=== PATIENT | male | born 1980 | race Caucasian/White ===

== ENCOUNTER 2018-03-16 14:01 | Emergency (ER) | payer BC ==
[2018-03-16] MEDS ORDERED: ASPIRIN 81 MG TABLET, CHEWABLE PO ONE (14:40)
--- NOTE | 2018-03-16 14:41 | ER Document Report ---
ED Medical Screen (RME) - General Chief Complaint: Chest Pain Stated Complaint: CHEST PAIN Time Seen by Provider: 03/16/18 14:26 Notes: 37-year-old male complaining of chest pain for a week. Dyspnea on exertion. Pain in his right arm. Chest pain is worse with exertion. Went to the urgent care and they sent him here. I have greeted and performed a rapid initial assessment of this patient. A comprehensive ED assessment and evaluation of the patient, analysis of test results and completion of the medical decision making process will be conducted by additional ED providers. TRAVEL OUTSIDE OF THE [place] IN LAST 30 DAYS: No - HPI Onset: Last week - Related Data Allergies/Adverse Reactions: No Known Allergies Allergy (Verified 03/16/18 14:02) Past Medical History - Social History Cigarette use (# per day): Yes - Occasional use Chew tobacco use (# tins/day): Yes Frequency of alcohol use: "former drinker, last drink few days ago" Drug Abuse: None Lives with: Spouse/Significant other Renal/ Medical History: Denies: Hx Peritoneal Dialysis Review of Systems - Review of Systems Notes: Review of systems remarkable for the following: Chest pain, shortness of breath , dyspnea on exertion, exertional chest pain, right arm pain, confusion Physical Exam - Vital signs Vitals: Temp Pulse Resp BP Pulse Ox 99.0 F 74 18 161/98 H 100 03/16/18 14:10 03/16/18 14:10 03/16/18 14:10 03/16/18 14:10 03/16/18 14:10 Interpretation: Normal - Respiratory Respiratory status: No respiratory distress Chest status: Nontender Breath sounds: Normal Chest palpation: Normal - Cardiovascular Rhythm: Regular Heart sounds: Normal auscultation Murmur: No - Extremities General upper extremity: Normal inspection, Nontender, Normal color, Normal ROM , Normal temperature General lower extremity: Normal inspection, Nontender, Normal color, Normal ROM , Normal temperature, Normal weight bearing. No: Michelle's sign Course - Vital Signs Vital signs: Temp Pulse Resp BP Pulse Ox 99.0 F 74 18 161/98 H 100 03/16/18 14:10 03/16/18 14:10 03/16/18 14:10 03/16/18 14:10 03/16/18 14:10
[2018-03-16 15:12] LABS: ABSOLUTE BASOPHILS # (AUTO) 0.1 10^3/uL (0.0-0.2); ABSOLUTE EOSINOPHILS # (AUTO) 0.2 10^3/uL (0.0-0.6); ABSOLUTE LYMPHOCYTES (AUTO) 1.7 10^3/uL (0.5-4.7); ABSOLUTE MONOCYTES (AUTO) 0.5 10^3/uL (0.1-1.4); ABSOLUTE NEUT (AUTO) 2.8 10^3/uL (1.7-8.2); BASOPHILS % (AUTO) 1.3 % (0-2); EOSINOPHILS % (AUTO) 3.6 % (0-6); HEMATOCRIT 43.9 % (37.9-51.0); HEMOGLOBIN 15.1 g/dL (13.5-17.0); LYMPHOCYTES % (AUTO) 33.2 % (13-45); MEAN CORPUSCULAR HGB CONC 34.4 g/dL (32.0-36.0); MEAN CORPUSCULAR VOLUME 84 fl (80-97); MONOCYTES % (AUTO) 8.8 % (3-13); PLATELET COUNT 196 10^3/uL (150-450); RED CELL DISTRIBUTION WIDTH 13.3 % (11.5-14.0); SEGMENTED NEUTROPHILS % (AUTO) 53.1 % (42-78); TOTAL CELLS COUNTED % (AUTO) 100 %; WHITE BLOOD COUNT 5.2 10^3/uL (4.0-10.5)
--- NOTE | 2018-03-16 15:14 | RADIOLOGY REPORT (SQ) ---
EXAM DESCRIPTION: CHEST 2 VIEWS COMPLETED DATE/TIME: 03/16/2018 2:53 pm REASON FOR STUDY: sob COMPARISON: None. EXAM PARAMETERS: NUMBER OF VIEWS: two views TECHNIQUE: Digital Frontal and Lateral radiographic views of the chest acquired. RADIATION DOSE: NA LIMITATIONS: none FINDINGS: LUNGS AND PLEURA: No acute infiltrates or effusions. MEDIASTINUM AND HILAR STRUCTURES: No masses or contour abnormalities. HEART AND VASCULAR STRUCTURES: The heart is normal with normal pulmonary vasculature. BONES: No acute findings. HARDWARE: None in the chest. OTHER: No other significant finding. IMPRESSION: NO ACUTE DISEASE. TECHNICAL DOCUMENTATION: JOB ID: [id number] [id number] [email or web address]- All Rights Reserved Reading location - IP/workstation name: [email or web address]
[2018-03-16 15:45] LABS: ALANINE AMINOTRANSFERASE 19 U/L (21-72); ALBUMIN 4.6 g/dL (3.5-5.0); ALKALINE PHOSPHATASE 63 U/L (38-126); ANION GAP 15 (5-19); ASPARTATE AMINO TRANSFERASE 23 U/L (17-59); BILIRUBIN,DIRECT 0.3 mg/dL (0.0-0.4); BILIRUBIN,TOTAL 0.5 mg/dL (0.2-1.3); BLOOD UREA NITROGEN 12 mg/dL (7-20); CALCIUM 9.9 mg/dL (8.4-10.2); CARBON DIOXIDE 27 mmol/L (22-30); CHLORIDE 103 mmol/L (98-107); CREATINE KINASE 131 U/L (55-170); GLUCOSE 95 mg/dL (75-110); POTASSIUM 4.2 mmol/L (3.6-5.0); SODIUM 145.3 mmol/L (137-145); TOTAL PROTEIN 7.8 g/dL (6.3-8.2)
[2018-03-16 15:58] LABS: CREATINE KINASE MB 0.41 ng/mL (<4.55); NT PRO BNP 66 pg/mL (<125)
--- NOTE | 2018-03-16 16:03 | ER Document Report ---
ED Cardiac - General Chief Complaint: Chest Pain Stated Complaint: CHEST PAIN Time Seen by Provider: 03/16/18 14:26 Information source: Patient Notes: Patient is a 37-year-old male but states around 1 week of some chest pain and shortness of breath on exertion. He denies any increased pain during this week. He states it resolves with rest. He denies any calf pain, leg swelling, recent trips or travel. Patient states he has no documented medical history but believes he may have elevated blood pressure at baseline. Patient states his mom had 2 stents but he is unsure when the stents were placed. TRAVEL OUTSIDE OF THE [place] IN LAST 30 DAYS: No - HPI Patient complains to provider of: Chest pain, Shortness of breath Was the onset of pain: Gradual Is the pain a: New problem Chest pain location: Substernal, Other - See above Quality of pain: Other - See above Chest pain radiation location: Right arm Severity now: None Severity at worst: Moderate Pain level currently: Denies Associated symptoms: Other - See above Exacerbated by: Denies Relieved by: Nothing Similar symptoms previously: No Recently seen / treated by doctor: No - Related Data Allergies/Adverse Reactions: No Known Allergies Allergy (Verified 03/16/18 14:02) Past Medical History - General Information source: Patient - Social History Smoking Status: Current Some Day Smoker Cigarette use (# per day): Yes - Occasional use Chew tobacco use (# tins/day): Yes Smoking Education Provided: No Frequency of alcohol use: "former drinker, last drink few days ago" Drug Abuse: None Lives with: Spouse/Significant other Family History: Other - See above Patient has suicidal ideation: No Patient has homicidal ideation: No Renal/ Medical History: Denies: Hx Peritoneal Dialysis Review of Systems - Review of Systems Constitutional: denies: Fever EENT: denies: Eye discharge, Nose discharge Respiratory: Short of breath Gastrointestinal: denies: Vomiting Genitourinary: denies: Dysuria Musculoskeletal: denies: Leg swelling Skin: Other - no hives. denies: Rash Neurological/Psychological: Other - no slurred speech -: Yes All other systems reviewed and negative Physical Exam - Vital signs Vitals: Temp Pulse Resp BP Pulse Ox 99.0 F 74 18 161/98 H 100 03/16/18 14:10 03/16/18 14:10 03/16/18 14:10 03/16/18 14:10 03/16/18 14:10 Notes: Reviewed vital signs and nursing note as charted by RN. CONSTITUTIONAL: Alert and oriented and responds appropriately to questions. Well -appearing; well-nourished HEAD: Normocephalic; atraumatic CARD: Regular rate and rhythm; no murmurs; symmetric distal pulses RESP: Normal chest excursion without splinting or tachypnea; breath sounds clear and equal bilaterally; no wheezes, no rhonchi, no rales ABD/GI: Normal bowel sounds; non-distended; soft, non-tender BACK: The back appears normal and is non-tender to palpation, there is no CVA tenderness EXT: Normal ROM in all joints; no edema SKIN: Normal color for age and race; warm; dry; no acute lesions noted NEURO: Moves all extremities equally; Motor and sensory function intact PSYCH: The patient's mood and manner are appropriate. Grooming and personal hygiene are appropriate. Course - Re-evaluation Re-evalutation: Given the above history and physical examination, we will obtain an EKG, cardiac panel, BNP, x-ray of the chest, and reassess. Patient already took 162 mg of aspirin at home. We will provide another 162 mg at this time. Given the young age, low risk factors, I do believe ACS to be unlikely. However, we will order the full cardiac panel. Given that the patient's symptoms have been going on for greater than 1 week, I believe one troponin should be sufficient. I will also add on a BNP given the patient states some dyspnea with exertion as well as a d-dimer. I will also add on a urine drug screen given the patient's young age and atypical symptomatology. 03/16/18 16:04 EKG shows a heart rate of 64, normal sinus rhythm, normal axis, no obvious ST elevation or depression. PVC is present 03/16/18 16:38 Cardiac labs, troponin, BNP, and d-dimer as recorded. Chest x-ray shows normal heart, normal mediastinum, no fractures, normal lung hill, no pneumothorax. Given the above history and physical examination, young age, HEART score of 1, with symptoms only upon ambulating, with an unremarkable EKG, with a normal d- dimer with a BNP is recorded, I do not believe that the patient requires admission at this time. Patient will be discharged home with strict return precautions and outpatient cardiology follow-up. Patient understands my instructions as well as to continue to take a baby aspirin daily until reevaluation. - Vital Signs Vital signs: Temp Pulse Resp BP Pulse Ox 99.0 F 74 13 161/98 H 99 03/16/18 14:10 03/16/18 14:10 03/16/18 16:00 03/16/18 14:10 03/16/18 16:00 - Laboratory Result Diagrams: 03/16/18 14:50 03/16/18 14:50 Laboratory results interpreted by me: 03/16/18 14:50 Sodium 145.3 H ALT 19 L Discharge - Discharge Clinical Impression: Chest pain Qualifiers: Chest pain type: unspecified Qualified Code(s): R07.9 - Chest pain, unspecified Condition: Good Disposition: HOME, SELF-CARE Additional Instructions: Come back immediately for any worsening symptoms, leg swelling, fever, change in location or quality of discomfort, or any other acute problems. Please follow-up with the pocket secretary assembler we have referred you to. Referrals: VELMA,NO [Primary Care Provider] - Follow up as needed EDDIE RAMIREZ MD [ACTIVE STAFF] - Follow up as needed
[2018-03-16 16:04] LABS: TROPONIN I < 0.012 ng/mL
[2018-03-16 16:20] LABS: APPEARANCE,URINE CLEAR; BILIRUBIN,URINE NEGATIVE (NEGATIVE); COLOR,URINE STRAW; GLUCOSE, URINE NEGATIVE (NEGATIVE); KETONES,URINE NEGATIVE (NEGATIVE); LEUKOCYTE ESTERASE,URINE NEGATIVE (NEGATIVE); NITRITE,URINE NEGATIVE (NEGATIVE); PROTEIN,URINE NEGATIVE (NEGATIVE); URINE SPECIFIC GRAVITY 1.004; UROBILINOGEN,URINE NEGATIVE mg/dL (<2.0)
[2018-03-16 16:21] LABS: URINE AMPHETAMINES SCREEN NEGATIVE; URINE BARBITURATES SCREEN NEGATIVE; URINE BENZODIAZEPINES SCREEN NEGATIVE; URINE COCAINE SCREEN NEGATIVE; URINE MARIJUANA (THC) SCREEN NEGATIVE; URINE METHADONE SCREEN NEGATIVE; URINE PHENCYCLIDINE SCREEN NEGATIVE
[2018-03-16 17:13] VITALS: BP 121/73
--- NOTE | 2018-03-17 10:02 | EKG REPORT ---
SEVERITY:- ABNORMAL ECG - SINUS RHYTHM VENTRICULAR PREMATURE COMPLEX ABNORMAL T, CONSIDER ISCHEMIA, ANTERIOR LEADS : Confirmed by: Dheeraj Orozco 17-Mar-2018 10:01:52
== END 2018-03-16 17:26 | disposition home or self-care (01) ==
LOC: ER 14:01
DX: R07.89 Other chest pain (principal); R06.02 Shortness of breath; F17.210 Nicotine dependence, cigarettes, uncomplicated
CPT/HCPCS: 36415; 71046; 80053; 80307; 81001; 82550; 82553; 83880; 84484; 85025; 85379; 93005; 93010; 99285

== ENCOUNTER → 2020-06-16 | Outpatient (CLI) | payer BC ==
[2020-06-16 11:33] LABS: TRIGLYCERIDES 337 mg/dL (<150)
[2020-06-16 11:45] LABS: DIRECT LDL 178 mg/dL (<100)
[2020-06-16 11:47] LABS: VLDL CHOLESTEROL 67.4 mg/dL (10-31)
== END ==
LOC: OD 09:42
PROVIDERS: ATTEND Physician Assistant
DX: R07.9 Chest pain, unspecified (principal); E78.5 Hyperlipidemia, unspecified; R00.2 Palpitations
CPT/HCPCS: 36415; 80061; 83735

== ENCOUNTER → 2020-07-15 | Outpatient (CLI) | payer BC ==
[2020-07-15 10:39] LABS: HEMATOCRIT 41.7 % (37.9-51.0); HEMOGLOBIN 14.1 g/dL (13.5-17.0); MEAN CORPUSCULAR HEMOGLOBIN 29.1 pg (27.0-33.4); MEAN CORPUSCULAR HGB CONC 33.8 g/dL (32.0-36.0); MEAN CORPUSCULAR VOLUME 86 fl (80-97); PLATELET COUNT 200 10^3/uL (150-450); RED BLOOD COUNT 4.84 10^6/uL (4.35-5.55); RED CELL DISTRIBUTION WIDTH 13.3 % (11.5-14.0); WHITE BLOOD COUNT 4.9 10^3/uL (4.0-10.5)
[2020-07-15 11:01] LABS: INTERNATIONAL RATION (INR) 1.05; PROTHROMBIN TIME 13.9 SEC (11.4-15.4)
[2020-07-15 11:02] LABS: PARTIAL THROMBOPLASTIN TIME 31.7 SEC (23.5-35.8)
[2020-07-15 11:08] LABS: ANION GAP 5 (5-19); BLOOD UREA NITROGEN 12 mg/dL (7-20); CALCIUM 9.6 mg/dL (8.4-10.2); CARBON DIOXIDE 31 mmol/L (22-30); CHLORIDE 103 mmol/L (98-107); GLUCOSE 115 mg/dL (75-110); POTASSIUM 4.9 mmol/L (3.6-5.0)
== END ==
LOC: OD 09:50
PROVIDERS: ATTEND Internal Medicine Cardiovascular Disease
DX: Z01.810 Encounter for preprocedural cardiovascular examination (principal); R07.89 Other chest pain; Z79.01 Long term (current) use of anticoagulants
CPT/HCPCS: 36415; 80048; 85027; 85610; 85730

== ENCOUNTER → 2020-08-05 | Outpatient (CLI) | payer BC ==
[2020-08-05 10:59] LABS: ALBUMIN 4.3 g/dL (3.5-5.0); ALKALINE PHOSPHATASE 76 U/L (38-126); ASPARTATE AMINO TRANSFERASE 31 U/L (17-59); BILIRUBIN,DIRECT 0.2 mg/dL (0.0-0.4); BILIRUBIN,TOTAL 0.6 mg/dL (0.2-1.3); CHOLESTEROL 166.25 mg/dL (0-200); TRIGLYCERIDES 121 mg/dL (<150)
[2020-08-05 11:12] LABS: DIRECT LDL 106 mg/dL (<100)
== END ==
LOC: OD 09:45
PROVIDERS: ATTEND Internal Medicine Cardiovascular Disease
DX: E78.5 Hyperlipidemia, unspecified (principal); Z79.899 Other long term (current) drug therapy
CPT/HCPCS: 36415; 80061; 80076